=== PATIENT | female | born 1975 | race Asian ===

== ENCOUNTER 2020-05-29 09:57 | Outpatient (REF) | payer MEDICAID, SELFPAY ==
--- NOTE | 2020-05-29 09:30 | VAG_PTH ---
PATIENT: Keyon Barrientos LOC: [facility] U#:[id number] AGE/SX: 44/F ROOM: RE05/29/[address]: Lizeth Doan : 1975 BED: DIS: 05/29/2020 SPEC #: [id number] RECD: 06/02/20 12:24 STATUS: SHILA REQ #: [id number] JEMMA: 05/29/20 09:[address]: Lizeth Doan DEPT: Surgical Specimen RECD BY: Batsheva Jara ENTERED: 06/02/20 12:26 SP TYPE: VAG OTHR DR: Sirisha Scott Tissues: 1 - VAGINAL BIOPSY Procedures: GROSS AND MICRO LEVEL 4 Comments: [id number]
[2020-06-02 14:22] LABS: Chlamydia Result Negative (Negative); GC Result Negative (Negative)
== END 2020-05-29 10:17 ==
LOC: LBN 09:57
PROVIDERS: PCP Family Medicine; Visit Provider Obstetrics & Gynecology Gynecology
DX: N76.2 Acute vulvitis (principal); L29.2 Pruritus vulvae; N89.8 Other specified noninflammatory disorders of vagina
CPT/HCPCS: 87491; 87591; 88305; 87480; 87510; 87660

== ENCOUNTER 2020-09-29 02:38 | Outpatient (CLI) | payer MEDICAID, SELFPAY ==
--- NOTE | 2020-09-29 07:15 | DI.MAMMO_ITS ---
EXAM: MG MAMMO SCREENING CLINICAL HISTORY: screening,Z12.39. TECHNIQUE: Bilateral full field digital CC and MLO mammographic images were obtained with 3D tomosyn thesis and utilizing computer aided detection (CAD). COMPARISON: None. This is a baseline mammogram on this 45-year-old patient FINDINGS: The fibroglandular tissue is very dense, this decreasing the sensitivity of the mammogram for finding hidden underlying lesions. There are no CAD designations. There are no obvious spiculated masses nor malignant appearing microcalcification groups. There is no significant architectural distortion nor skin thickening-retraction. IMPRESSION: Dense bilateral fibroglandular tissue. No obvious radiographic evidence of malignancy BI-RADS Category 1 - Negative Breast Density - Category D - Extremely dense Breast density Category C or D implies that the patient has dense breast tissue. Dense breast tissue can make it harder to find cancer on a mammogram. Dense breast tissue is also associated with an incr eased risk of breast cancer. This information about the result of the mammogram report was provided to the patient to raise their awareness. Use this report when you speak with the patient about their risks for breast cancer, which includes their family history. At that time, you may recommend additional screening tests (Ultrasoun d or MRI) as these tests may add significant information. A negative radiographic report should not delay biopsy if a dominant or clinically suspicious mass is present. Up to ten percent of cancers are not identified on mammography. A negative report may reinforce clinical impression. Adenosis and dense breasts may obscure an underlying neoplasm. False positive reports average 6 to 10%. Patient will receive a letter notifying them of these results.
== END 2020-09-29 02:58 ==
PROVIDERS: PCP Family Medicine; Visit Provider Obstetrics & Gynecology Gynecology
DX: Z12.31 Encounter for screening mammogram for malignant neoplasm of breast (principal)
CPT/HCPCS: 77063; 77067

== ENCOUNTER 2022-09-13 10:55 | Outpatient (REF) | payer MEDICAID, SELFPAY ==
--- NOTE | 2022-09-13 11:00 | PAPFT_PTH ---
PATIENT: Keyon Barrientos LOC: [facility] U#:[id number] AGE/SX: 47/F ROOM: RE09/13/[address]: Lizeth Doan : 1975 BED: DIS: 09/13/2022 SPEC #: [id number] RECD: 09/13/22 12:45 STATUS: SHILA REQ #: [id number] JEMMA: 09/13/22 11:[address]: Lizeth Doan DEPT: [facility] Cytology RECD BY: Batsheva Jara ENTERED: 09/13/22 12:45 SP TYPE: PAPFT OTHR DR: Sirisha Scott Tissues: 1 - CX/ENDOCX FOR PAP SMEARS Procedures: PAP THIN PREP/UVM Screening HPV DNA PROBE Comments: [id number]
== END 2022-09-13 10:56 | disposition home or self-care (01) ==
LOC: LBN 10:55
PROVIDERS: PCP Family Medicine; Visit Provider Obstetrics & Gynecology Gynecology
DX: Z12.4 Encounter for screening for malignant neoplasm of cervix (principal); Z11.51 Encounter for screening for human papillomavirus (HPV)
CPT/HCPCS: 88142; 87624

== ENCOUNTER 2022-09-29 01:29 | Outpatient (CLI) | payer MEDICAID, SELFPAY ==
--- NOTE | 2022-09-29 07:45 | DI.MAMMO_ITS ---
Exam(s) MAMMO SCREENING EXAM: MAMMO SCREENING CLINICAL HISTORY: screening. TECHNIQUE: Bilateral full field digital CC and MLO mammographic images were obtained with 3D tomosyn thesis and utilizing computer aided detection (CAD). COMPARISON: 2020 FINDINGS: Masses/Architectural Distortion: None seen. Microcalcifications: No suspicious pleomorphic-type are seen. Skin Thickening/Nipple Retraction: None. IMPRESSION: 1. No significant interval change with no specific features of malignancy noted. 2. Unless there is more urgent need, annual screening mammography is recommended, as per [place] [employer] guidelines. BI-RADS Category 1-negative Breast Density - Category D - extremely dense Breast Density Category D: The mammogram demonstrates the patient's breast tissue is dense. Dense caridad ast tissue is very common and is not abnormal but dense breast tissue can make it harder to find canc er on a mammogram. Also, dense breast tissue may increase their breast cancer risk. This information about the result of the mammogram report was provided to the patient to raise their awareness. Use th is report when you speak with the patient about their risks for breast cancer, which includes their f amily history. At that time, you may recommend for more screening tests (Ultrasound or MRI) as they m ight be useful based on their risk. A negative radiographic report should not delay biopsy if a dominant or clinically suspicious mass is present. Up to ten percent of cancers are not identified on mammography. A negative report may reinforce clinical impression. Adenosis and dense breasts may obscure an underlying neoplasm. False positive reports average 6 to 10%.
== END 2022-09-29 01:49 ==
LOC: DI 01:40
PROVIDERS: PCP Family Medicine; Visit Provider Obstetrics & Gynecology Gynecology
DX: Z12.31 Encounter for screening mammogram for malignant neoplasm of breast (principal)
CPT/HCPCS: 77063; 77067

== ENCOUNTER → 2023-09-26 03:36 | Outpatient (CLI) | payer MEDICAID, SELFPAY ==
--- NOTE | 2023-09-26 06:30 | DI.US_ITS ---
Exam(s) US PELVIS TRANSVAGINAL EXAM: US PELVIS TRANSVAGINAL CLINICAL HISTORY: check anatomy,rlq and llq pain,r10.31,r10.32. TECHNIQUE: Transabdominal and transvaginal pelvic ultrasound was performed using standard protocol. COMPARISON: No exams were available for comparison FINDINGS: UTERUS: Position: Retroverted. Size: 6.2 long by 4.0 AP by 2.9 transverse cm Endometrium: 0.2 cm. Normal for patient's menstrual status. Myometrium: There is a 2.4 x 2.3 x 2.6 cm isoechoic mass in the fundus of the uterus most consistent with a fibroid. Cervix: Cervical nabothian cyst is present. OVARIES: Right: 1.5 x 0.8 x 1.1 cm Cyst or mass: No suspicious cystic or solid masses. Left: 1.5 x 1.2 x 1.3 cm Cyst or mass: No suspicious cystic or solid masses. DOPPLER: Color: Symmetric and uniform flow to both ovaries. CUL-DE-SAC: Free fluid: None. Other: None. IMPRESSION: 1. 2.4 x 2.3 x 2.6 cm uterine fibroid. 2. Unremarkable endometrial stripe. 3. Unremarkable bilateral ovaries. DATA REPOSITORY:
== END ==
PROVIDERS: Visit Provider Obstetrics & Gynecology
DX: R10.31 Right lower quadrant pain (principal); R10.32 Left lower quadrant pain; D25.0 Submucous leiomyoma of uterus
CPT/HCPCS: 76830; 76856